=== PATIENT | male | born 1990 | race African-American/Black ===

== ENCOUNTER → 2023-03-19 | Outpatient (REF) | payer OTHER | LOC: CT 14:33 | PROVIDERS: ATTEND Family Medicine | DX: S93.402A Sprain of unspecified ligament of left ankle, initial encounter (principal); W19.XXXA Unspecified fall, initial encounter; Z02.6 Encounter for examination for insurance purposes; R93.89 Abnormal findings on diagnostic imaging of other specified body structures ==